=== PATIENT | male | born 1955 | race Caucasian/White ===

== ENCOUNTER 2016-11-09 19:58 | Emergency (ER) | payer SELFPAY ==
[2016-11-09 20:06] VITALS: BP 181/85; PULSE 96; RESP 18; TEMP 98.6
--- NOTE | 2016-11-09 20:15 | ED ---
General Adult HPI - General Chief complaint: Recheck/Abnormal Lab/Rx Stated complaint: Med refill Time Seen by Provider: 11/09/16 20:07 Source: patient, RN notes reviewed Mode of arrival: ambulatory Limitations: no limitations - History of Present Illness Initial comments: 61-year-old male presents for a refill on his metformin. Patient states that he ran out and he needs refill. His doctors in [place] and he is unable to get there. Patient states that his glucose have been running normal. He has no symptoms. He denies any increased urination any headache any nausea any vomiting. Patient was concerned because he does need his metformin so he thought that he should come here for a refill.Patient denies any recent fever, chills, shortness of breath, chest pain, back pain, abdominal pain, nausea vomiting, numbness or tingling, dysuria or hematuria, constipation or diarrhea, headaches or visual changes, or any other current symptoms. - Related Data Previous Rx's Medication Instructions Recorded metFORMIN HCL [Glucophage Xr] 500 mg PO DAILY #20 tab 11/09/16 Allergies Allergy/AdvReac Type Severity Reaction Status Date / Time aripiprazole [From Abilify] AdvReac Rash/Hives Verified 11/09/16 20:01 azithromycin [From Zithromax] AdvReac Rash/Hives Verified 11/09/16 20:01 Review of Systems ROS Statement: Those systems with pertinent positive or pertinent negative responses have been documented in the HPI. ROS Other: All systems not noted in ROS Statement are negative. Past Medical History Past Medical History: Diabetes Mellitus History of Any Multi-Drug Resistant Organisms: None Reported Additional Past Surgical History / Comment(s): adrenal gland removed Past Psychological History: Bipolar Smoking Status: Current every day smoker Past Alcohol Use History: None Reported Past Drug Use History: None Reported General Exam Limitations: no limitations General appearance: alert, in no apparent distress Eye exam: Present: normal appearance, PERRL, EOMI. Absent: scleral icterus, conjunctival injection, periorbital swelling ENT exam: Present: normal exam, mucous membranes moist Neck exam: Present: normal inspection. Absent: tenderness, meningismus, lymphadenopathy Respiratory exam: Present: normal lung sounds bilaterally. Absent: respiratory distress, wheezes, rales, rhonchi, stridor Cardiovascular Exam: Present: regular rate, normal rhythm, normal heart sounds. Absent: systolic murmur, diastolic murmur, rubs, gallop, clicks Neurological exam: Present: alert, oriented X3 Psychiatric exam: Present: normal affect, normal mood Skin exam: Present: warm, dry, intact, normal color. Absent: rash Course Vital Signs 11/09/16 20:01 Temperature 98.6 F Pulse Rate 96 Respiratory 18 Rate Blood Pressure 181/85 O2 Sat by Pulse 96 Oximetry Medical Decision Making - Medical Decision Making 61-year-old male presents for medication refill. At this time the patient metformin was refilled. We did discuss follow-up. We did discuss return parameters discussed all the patient's family's questions. Patient stated he understood. At this time he will be discharged home. Patient denies any recent fever, chills, shortness of breath, chest pain, back pain, abdominal pain, nausea vomiting, numbness or tingling, dysuria or hematuria, constipation or diarrhea, headaches or visual changes, or any other current symptoms. Disposition Clinical Impression: Medication refill Disposition: HOME SELF-CARE Condition: Stable Instructions: Metformin (By mouth) Additional Instructions: Please use medication as discussed. Please follow up with family doctor if symptoms have not improved over the next two days. Please return to the emergency room if your symptoms increase or worsen or for any other concerns. Prescriptions: metFORMIN HCL [Glucophage Xr] 500 mg PO DAILY #20 tab Referrals: Fiordaliza Pillai MD [STAFF PHYSICIAN] - 1-2 days Time of Disposition: 20:14
== END 2016-11-09 20:24 | disposition home or self-care (01) ==
LOC: EC 19:58
DX: Z76.0 Encounter for issue of repeat prescription (principal); F17.200 Nicotine dependence, unspecified, uncomplicated; Z88.8 Allergy status to other drugs, medicaments and biological substances; Z88.1 Allergy status to other antibiotic agents
CPT/HCPCS: 99281

== ENCOUNTER 2016-11-29 11:31 | Emergency (ER) | payer SELFPAY ==
[2016-11-29 11:43] VITALS: BP 134/84; PULSE 88; RESP 16; TEMP 98.9
--- NOTE | 2016-11-29 12:04 | ED ---
General Adult HPI - General Chief complaint: Recheck/Abnormal Lab/Rx Stated complaint: Med Refill Time Seen by Provider: 11/29/16 11:46 Source: patient Mode of arrival: ambulatory Limitations: no limitations - History of Present Illness Initial comments: This is a 61-year-old male who presents to emergency department today with request for refill of metformin. He reports he takes 500mg/day. Patient reports he had a an appointment with his PCP scheduled for yesterday, but was unable to receive a ride. He has no other complaints. Denies fever, chills, chest pain, shortness of breath, abdominal pain, nausea, vomiting, dysuria, hematuria, numbess, tingling, headache or vision changes. - Related Data Previous Rx's Medication Instructions Recorded metFORMIN HCL [Glucophage Xr] 500 mg PO DAILY #30 tab 11/29/16 Allergies Allergy/AdvReac Type Severity Reaction Status Date / Time aripiprazole [From Abilify] AdvReac Swelling Verified 11/29/16 11:46 azithromycin [From Zithromax] AdvReac Itching Verified 11/29/16 11:46 Review of Systems ROS Statement: Those systems with pertinent positive or pertinent negative responses have been documented in the HPI. ROS Other: All systems not noted in ROS Statement are negative. Past Medical History Past Medical History: Diabetes Mellitus History of Any Multi-Drug Resistant Organisms: None Reported Additional Past Surgical History / Comment(s): adrenal gland removed Past Psychological History: Bipolar Smoking Status: Current every day smoker Past Alcohol Use History: None Reported Past Drug Use History: None Reported General Exam - General Exam Comments Initial Comments: General: Awake and alert, well-developed; in no apparent distress. HEENT: Head atraumatic, normocephalic. Pupils are equal, round and reactive to light. Extraocular movements intact. Neck: Supple. Normal ROM. No JVD. Cardiovascular: Regular rate and rhythm. No murmurs, rubs or gallops. Chest symmetrical. Respiratory: Lungs clear to auscultation bilaterally. No wheezes, rales or rhonchi. Normal respiratory effort with no use of accessory muscles. Musculoskeletal: Normal ROM. No tenderness. Ambulating normally. Skin: [place], warm and dry without rashes or lesions. Neurological: Alert and oriented x3. CN II-XII grossly intact. Speech is fluent and answers are appropriate. No focal neuro deficits. Psychiatric: Normal mood and affect. No overt signs of depression or anxiety noted. Limitations: no limitations Course Vital Signs 11/29/16 11:41 Temperature 98.9 F Pulse Rate 88 Respiratory 16 Rate Blood Pressure 134/84 O2 Sat by Pulse 98 Oximetry Medical Decision Making - Medical Decision Making Patient will be discharged home with a refill for metformin 500 mg. Strongly recommended follow up with PCP. Disposition Clinical Impression: Encounter for medication refill Disposition: HOME SELF-CARE Condition: Good Additional Instructions: Please take medications as prescribed. Please follow up with PCP as soon as possible. Return to ED if any concerns arise. Prescriptions: metFORMIN HCL [Glucophage Xr] 500 mg PO DAILY #30 tab Referrals: Nonstaff,Physician [Primary Care Provider] - 1-2 days Time of Disposition: 12:04
== END 2016-11-29 12:09 | disposition home or self-care (01) ==
LOC: EC 11:31
DX: Z76.0 Encounter for issue of repeat prescription (principal); E11.9 Type 2 diabetes mellitus without complications; F17.200 Nicotine dependence, unspecified, uncomplicated; Z88.1 Allergy status to other antibiotic agents; Z88.8 Allergy status to other drugs, medicaments and biological substances
CPT/HCPCS: 99281